=== PATIENT | male | born 1985 | race Two or more races ===

== ENCOUNTER 2022-02-10 14:49 | Emergency (ER) | payer BC ==
[~2022-02-10] VITALS: Ht 177.8 cm; Wt 86.2 kg
[2022-02-10] MEDS ORDERED: IBUPROFEN 600 MG TABLET ONE (15:44)
[2022-02-10] MEDS ORDERED: IBUPROFEN 600 MG TABLET PO ONE (16:00)
--- NOTE | 2022-02-10 16:39 | NUR ---
SEEN AND EVALUATED BY DR BUENO. DISCHARGE IN STABLE CONDITION.
[2022-02-10 16:41] VITALS: BP 125/70
== END 2022-02-10 16:41 | disposition home or self-care (01) ==
LOC: ER 14:55
DX: S93.401A Sprain of unspecified ligament of right ankle, initial encounter (principal); R55 Syncope and collapse; X58.XXXA Exposure to other specified factors, initial encounter; Y93.89 Activity, other specified; Y92.89 Other specified places as the place of occurrence of the external cause; Y99.8 Other external cause status
CPT/HCPCS: 73610-TC

== ENCOUNTER 2022-04-22 12:46 | Emergency (ER) | payer BC ==
[~2022-04-22] VITALS: Ht 182.9 cm; Wt 90.7 kg
[2022-04-22] MEDS ORDERED: IBUPROFEN 600 MG TABLET ONE (13:27)
[2022-04-22] MEDS ORDERED: ONDANSETRON 4 MG TAB.RAPDIS ONE (13:28)
[2022-04-22] MEDS ORDERED: ONDANSETRON 4 MG TAB.RAPDIS SL ONE (13:30)
[2022-04-22] MEDS ORDERED: IBUPROFEN 600 MG TABLET PO ONE (13:30)
--- NOTE | 2022-04-22 13:32 | NUR ---
ALEKSANDRA ALFONSO AT BEDSIDE
--- NOTE | 2022-04-22 13:33 | NUR ---
URINE SAMPLE COLLECTED AND SENT TO LAB
[2022-04-22 14:00] LABS: BILIRUBIN,URINE NEGATIVE (NEGATIVE); LEUKOCYTE ESTERASE ,URINE NEGATIVE (NEGATIVE); NITRITE, URINE NEGATIVE (NEGATIVE); PROTEIN,URINE NEGATIVE (NEGATIVE); UGLUCOSE NEGATIVE (NEGATIVE); UROBILINOGEN,URINE 0.2 EU/dL (0.2)
[2022-04-22 14:02] LABS: COLOR,URINE YELLOW (YELLOW)
[2022-04-22 14:33] VITALS: BP 128/69
--- NOTE | 2022-04-22 14:33 | NUR ---
Patient discharged to home in stable condition. Written and verbal after care instructions given. Patient verbalizes understanding of instruction.
== END 2022-04-22 14:33 | disposition home or self-care (01) ==
LOC: ER 12:50
DX: I86.1 Scrotal varices (principal)
CPT/HCPCS: 99284; 76870; 87086; 81003; 87491; 87591; Q0162